=== PATIENT | female | born 1980 | race Caucasian/White ===

== ENCOUNTER 2021-08-22 11:23 | Outpatient (REF) | payer OTHER, SELFPAY ==
[2021-08-22 13:53] LABS: Estimated Average Glucose 137 mg/dL; Hemoglobin A1c % 6.4 %
[2021-08-22 13:58] LABS: Cholesterol 149 mg/dL; HDL Cholesterol 34 mg/dL; LDL Cholesterol Calculated 59 mg/dl; Triglycerides 283 mg/dL
== END 2021-08-22 11:24 | disposition home or self-care (01) ==
LOC: HO.HMGCLDS 11:23
PROVIDERS: PCP Internal Medicine; Visit Provider Registered Nurse
DX: Z72.89 Other problems related to lifestyle (principal)
CPT/HCPCS: 36415; 80061; 83036